=== PATIENT | male | born 1965 | race Caucasian/White ===

== ENCOUNTER 2018-04-14 21:06 | Emergency (ER) | payer SELFPAY ==
[2018-04-14 21:25] VITALS: BP 161/88
--- NOTE | 2018-04-14 21:26 | EDM.PDOC ---
ED HPI GENERAL MEDICAL PROBLEM - General Chief Complaint: Genitourinary Problem Stated Complaint: kidney stone Time Seen by Provider: 04/14/18 21:26 Source of Information: Reports: Patient History Limitations: Reports: No Limitations - History of Present Illness INITIAL COMMENTS - FREE TEXT/NARRATIVE: 52-year-old male presents the ED for evaluation of dizziness lightheadedness and shortness of breath that occurred after shoveling snow this afternoon. He does admit that he did take a energy drink prior to going out to shovel snow. He wanted to make sure that he wasn't having a heart attack since his symptoms seem to persist he just doesn't feel right. He's been struggling also with a left renal stone on the left ureter. He hasn't been able to pursue urology services because he doesn't have insurance at this point time. Patient has had multiple renal calculi. Is been present for about 4 weeks. Therefore he wanted to make sure he did not have a urinary tract infection as well. States he kind of feels like he has a low-grade fever and feels weak. Eyes any true chest pain. Denies cough or sputum production. Clinically he feels like he has a low- grade fever. In fact nurses report temperature 37.6. He denies cough or sputum production. Onset: Today Onset Date: 04/14/18 Onset Time: 15:00 Duration: Hour(s): Location: Reports: Generalized (Just generally doesn't feel good. Feels mildly short of breath slightly dizzy slightly weak) Quality: Reports: Other Severity: Mild (Weakness dizziness and dyspnea.) Improves with: Reports: None Worsens with: Reports: None Context: Reports: Other. Denies: Activity, Exercise, Lifting, Sick Contact Associated Symptoms: Reports: Fever/Chills, Loss of Appetite, Malaise, Shortness of Breath. 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 below) (None.) Left Flank Pain Score (Numeric/FACES): 2 - Related Data Allergies Allergy/AdvReac Type Severity Reaction Status Date / Time milk Allergy Nausea and Verified 11/25/15 10:20 Vomiting Home Meds: Home Meds Simvastatin [Zocor] 20 mg PO DAILY 11/25/15 [History] Nitrofurantoin Monohyd/M-Cryst [Macrobid 100 mg Capsule] 100 mg PO BID #16 capsule 04/14/18 [Rx] oxyCODONE HCl/Acetaminophen [Percocet 5-325 mg Tablet] 1 - 2 each PO Q4H PRN # 10 tablet 04/14/18 [Rx] Past Medical History Cardiovascular History: Reports: High Cholesterol Genitourinary History: Reports: Renal Calculus (On greater than 6 occasions), Other (See Below) Other Genitourinary History: lithotripsy - Past Surgical History Male Surgical History: Reports: Lithotripsy (ESWL) Social & Family History - Caffeine Use Caffeine Use: Reports: Coffee - Living Situation & Occupation Living situation: Reports: , with Spouse Occupation: Employed ED ROS GENERAL - Review of Systems Review Of Systems: See Below Constitutional: Reports: Fever, Malaise, Weakness, Fatigue, Decreased Appetite. Denies: Chills, Weight Loss HEENT: Reports: No Symptoms Respiratory: Reports: Shortness of Breath. Denies: Wheezing, Pleuritic Chest Pain, Cough, Sputum, Hemoptysis, Other Cardiovascular: Reports: Blood Pressure Problem, Lightheadedness. Denies: Chest Pain, Claudication, Dyspnea on Exertion, Edema, Orthopnea (Mild hypertension), Palpitations Endocrine: Reports: Fatigue GI/Abdominal: Reports: Abdominal Pain (Left lower quadrant abdominal pain due to presumed retained renal stone) : Reports: Frequency Musculoskeletal: Reports: No Symptoms, Back Pain (Pain inferior to his left kidney.) Skin: Reports: No Symptoms Neurological: Reports: No Symptoms Psychiatric: Reports: No Symptoms Hematologic/Lymphatic: Reports: No Symptoms Immunologic: Reports: No Symptoms ED EXAM, GENERAL - Physical Exam Exam: See Below Exam Limited By: No Limitations General Appearance: Alert, WD/WN, Anxious, Mild Distress, Other (Vital signs show that his temperature is 37.6. Pulse 94 and sinus blood pressure slightly elevated 161/88. Sats are 96% on room air) Eye Exam: Bilateral Eye: Normal Inspection Ears: Normal TMs Throat/Mouth: Normal Inspection, Normal Lips, Normal Teeth, Normal Oropharynx Head: Atraumatic, Normocephalic Neck: Normal Inspection, Supple, Non-Tender, Full Range of Motion. No: Carotid Bruit, Lymphadenopathy (L) Respiratory/Chest: No Respiratory Distress, Lungs Clear, Normal Breath Sounds, No Accessory Muscle Use, Chest Non-Tender Cardiovascular: Normal Peripheral Pulses, Regular Rate, Rhythm, No Edema, No Gallop, No Murmur, No Rub Peripheral Pulses: 2+: Posterior Tibial (L), Posterior Tibial (R), Dorsalis Pedis (L), Dorsalis Pedis (R) GI/Abdominal: Normal Bowel Sounds, Soft, Non-Tender, No Organomegaly, No Abnormal Bruit, No Mass, Pelvis Stable (Male) Exam: No Hernia Back Exam: CVA Tenderness (L). No: CVA Tenderness (R) (Mild.), Decreased Range of Motion, Muscle Spasm Extremities: Normal Inspection, Normal Range of Motion, Non-Tender, No Pedal Edema Neurological: Alert, Oriented, CN II-XII Intact, Normal Cognition Psychiatric: Normal Affect, Normal Mood Skin Exam: Warm, Dry, Intact, Normal Color, No Rash EKG INTERPRETATION EKG Date: 04/14/18 Time: 22:00 Rhythm: NSR Rate (Beats/Min): 90 [place]: LAD-Left Wynot Deviation (-34) P-Wave: Present QRS: Other (Q-wave in lead 3 and near Q-wave in aVF. Cannot rule out old inferior wall myocardial infarction) ST-T: Normal QT: Normal EKG Interpretation Comments: Borderline ECG Course - Vital Signs Last Recorded V/S: Last Vital Signs Temp 37.6 C 04/14/18 21:19 Pulse 94 04/14/18 21:19 Resp 16 04/14/18 21:19 BP 161/88 H 04/14/18 21:19 Pulse Ox 95 04/14/18 21:19 - Orders/Labs/Meds Orders: Active Orders 24 hr Category Date Time Status EKG Documentation Completion [RC] STAT Care 04/14/18 21:25 Active Chest 1V Frontal [CR] Stat Exams 04/14/18 21:25 Taken Labs: Laboratory Tests 04/14/18 04/14/18 04/14/18 Range/Units 21:10 21:45 21:45 WBC 8.58 (4.23-9.07) K/mm3 RBC 5.24 (4.63-6.08) M/mm3 Hgb 15.6 (13.7-17.5) gm/L Hct 45.1 (40.1-51.0) % MCV 86.1 (79.0-92.2) fl MCH 29.8 (25.7-32.2) pg MCHC 34.6 (32.2-35.5) g/dl RDW Std Deviation 40.8 (35.1-43.9) fL Plt Count 437 H (163-337) K/mm3 MPV 8.2 L (9.4-12.3) fl Neutrophils % (Manual) 53 (40-60) % Band Neutrophils % 0 (0-10) % Lymphocytes % (Manual) 38 (20-40) % Atypical Lymphs % 0 % Monocytes % (Manual) 3 (2-10) % Eosinophils % (Manual) 6 (0.8-7.0) % Basophils % (Manual) 0 L (0.2-1.2) Platelet Estimate Increased Plt Morphology Comment See note RBC Morph Comment Normal Sodium 141 (136-145) mEq/L Potassium 3.9 (3.5-5.1) mEq/L Chloride 105 (98-107) mEq/L Carbon Dioxide 26 (21-32) mEq/L Anion Gap 13.9 (5-15) BUN 16 (7-18) mg/dL Creatinine 1.1 (0.7-1.3) mg/dL Est Cr Clr Drug Dosing 86.22 mL/min Estimated GFR (MDRD) > 60 (>60) mL/min BUN/Creatinine Ratio 14.5 (14-18) Glucose 119 H (74-106) mg/dL Calcium 9.3 (8.5-10.1) mg/dL Total Bilirubin 0.3 (0.2-1.0) mg/dL AST 20 (15-37) U/L ALT 43 (16-63) U/L Alkaline Phosphatase 62 (46-116) U/L CK-MB (CK-2) 1.3 (0-3.6) ng/ml Troponin I < 0.017 (0.00-0.056) ng/mL C-Reactive Protein 0.2 (<1.0) mg/dL Total Protein 7.1 (6.4-8.2) g/dl Albumin 3.6 (3.4-5.0) g/dl Globulin 3.5 gm/dL Albumin/Globulin Ratio 1.0 (1-2) Urine Color Light yellow (Yellow) Urine Appearance Clear (Clear) Urine pH 7.0 (5.0-8.0) Ur Specific [place] 1.015 (1.005-1.030) Urine Protein Negative (Negative) Urine Glucose (UA) Negative (Negative) Urine Ketones Negative (Negative) Urine Occult Blood Trace-intact H (Negative) Urine Nitrite Negative (Negative) Urine Bilirubin Negative (Negative) Urine Urobilinogen 0.2 (0.2-1.0) Ur Leukocyte Esterase Negative (Negative) Urine RBC 0-5 (0-5) /hpf Urine WBC 0-5 (0-5) /hpf Ur Epithelial Cells 0-5 (0-5) /hpf Amorphous Sediment Few H (NOT SEEN) /hpf Urine Bacteria Few (FEW) /hpf Urine Mucus Not seen (FEW) /hpf Meds: Medications Discontinued Medications Generic Name Dose Route Start Last Admin Trade Name Freq PRN Reason Stop Dose Admin Dextrose/Sodium Chloride 1,000 mls @ 999 mls/hr 04/14/18 21:30 04/14/18 21:51 Dextrose 5%-Normal Saline IV 999 mls/hr ASDIRECTED KETTY Administration Nitrofurantoin Macrocrystals 100 mg 04/14/18 22:39 04/14/18 22:58 Macrobid PO 04/14/18 22:40 100 mg ONETIME ONE Administration - Radiology Interpretation Free Text/Narrative:: 52-year-old male presents the ED for evaluation of shortness of breath some dizziness and just generally not feeling well for about 2-3 hours after shoveling snow earlier this afternoon. States he just wanted to make sure he wasn't having a heart attack. Patient is having a lot of pain due to a left- sided kidney stone which has been present for several weeks. At present he doesn 't have a job with any insurance and therefore has not sought out urology services. Concern he may have a urinary tract infection as well. Patient admits she did have an energy drink before he went out to shovel snow. Case after shoveling snow he felt quite dizzy lightheaded and short of breath. Actually then 1 in the hopes to rest for a couple of hours and still feeling not quite right. Examination reveals normal vital signs he is mildly anxious. Routine labs and urinalysis will be obtained as well as ECG and a chest x-ray to rule out any cardiac abnormalities. Examination is otherwise normal. Patient did not wish to pursue CT exam of the abdomen to establish stone size due to cost at this time - Re-Assessments/Exams Free Text/Narrative Re-Assessment/Exam: 04/14/18 22:32 Labs reveal a normal white count at 8.58. Differential is 53% neutrophils and no bands reported. Hemoglobin is 15.6 with hematocrit of 45.1. Platelet count is 437,000 slightly elevated. Sodium 141 with a potassium of 3.9. Chloride 105 with a bicarbonate 26. And a gap is 13.9 with a BUN of 16. Creatinine is 1.1. GFR remains greater than 60. Glucose is 119. Calcium is 9.3 bilirubin is 0.3 with liver function otherwise normal. Troponin I is less than 0.017 and CK-MB fraction is 1.3. Urinalysis shows slightly yellow urine .Trace of occult blood . No signs of infection. Plan patient will be placed on Macrobid 100 mg twice a day for the next 10 days to prevent urinary tract infection as the stone is been wedged in the left lower ureter clinically for the last 4 weeks. Reassured that his heart is okay. Given 10 tablets of Percocet 5/3/25 milligrams to be used when necessary for renal colic pain. May be coming down with a viral upper respiratory tract infection. Departure - Departure Time of Disposition: 22:39 Disposition: Home, Self-Care 01 Condition: Fair Clinical Impression: Renal colic on left side Fever Qualifiers: Fever type: unspecified Qualified Code(s): R50.9 - Fever, unspecified - Discharge Information *PRESCRIPTION DRUG MONITORING PROGRAM REVIEWED*: Not Applicable *COPY OF PRESCRIPTION DRUG MONITORING REPORT IN PATIENT JUDY: Not Applicable Prescriptions: Nitrofurantoin Monohyd/M-Cryst [Macrobid 100 mg Capsule] 100 mg PO BID #16 capsule oxyCODONE HCl/Acetaminophen [Percocet 5-325 mg Tablet] 1 - 2 each PO Q4H PRN # 10 tablet PRN Reason: pain relief. Instructions: Renal Colic, [id number] Referrals: PCP,None [Primary Care Provider] - Forms: ED Department Discharge Additional Instructions: Evaluation the emergency room today in regards to onset of dizziness shortness of breath and just generally not feeling well while out shoveling snow today. No significant chest pain or pressure that persisted. ECG done in the ED suggested the possibility of a problem in the inferior bottom of the heart in the past but nothing acute. You're currently suffering with a kidney stone that is stuck in the left lower ureter. Low-grade fever clinically. Therefore chest x -ray was done and proved to be within normal limits with no signs of pneumonia. Lab tests revealed a normal white count with no elevation of the type of cells that fight off infection. Urinalysis showed a trace of red blood cells. Heart tests proved to be completely normal with no evidence of any heart related illness and certainly no signs of heart attack. You are given Percocet 5/3/25 milligrams tabs 10 to be taken as needed for renal colic on the left side. Macrobid 100 mg twice daily for the next 8 days to prevent kidney infection from occurring due to stone. Follow-up if any further problems occur. I suspect you may be coming down with a viral type illness to Gibbs low-grade fever at this time. - My Orders Last 24 Hours: My Active Orders 04/14/18 21:25 EKG Documentation Completion [RC] STAT Chest 1V Frontal [CR] Stat - Assessment/Plan Last 24 Hours: My Active Orders 04/14/18 21:25 EKG Documentation Completion [RC] STAT Chest 1V Frontal [CR] Stat
[2018-04-14] MEDS ORDERED: Dextrose 5%-0.9% NaCl 1,000 ML IV SCH (21:30)
[2018-04-14] MEDS ORDERED: Nitrofurantoin Monohydrate/Macrocrystalline 100 MG Cap PO ONE (22:39)
--- NOTE | 2018-04-15 07:17 | CR ---
Chest: Portable view of the chest was obtained. Comparison: Prior chest x-ray of 04/28/14. Heart size and mediastinum are normal. Slight atelectasis is seen within the lateral left costophrenic angle. Lungs are clear with no acute parenchymal change. Bony structures are unremarkable. Impression: 1. Nothing acute is seen in frontal chest x-ray. Diagnostic code #1
== END 2018-04-14 23:00 | disposition home or self-care (01) ==
LOC: JD.ED 21:06
DX: N20.0 Calculus of kidney (principal); R50.9 Fever, unspecified; R42 Dizziness and giddiness; E78.00 Pure hypercholesterolemia, unspecified; Z79.899 Other long term (current) drug therapy; Z91.011 Allergy to milk products
CPT/HCPCS: 36415; 71045; 80053; 81001; 82553; 84484; 85007; 85027; 86140; 93005; 96360; 99284; A9270; J7042; 93010; 99283

== ENCOUNTER 2018-06-23 20:38 | Emergency (ER) | payer MEDICAID, OTHER ==
[2018-06-23 20:48] VITALS: BP 140/93
[2018-06-23] MEDS ORDERED: Lidocaine 1% 10 ML MDV INJECT ONE (21:14)
[2018-06-23] MEDS ORDERED: Diphtheria,Pertussis(Acell),Tetanus Vaccine 0.5 ML Syringe IM ONE (21:14)
[2018-06-23] MEDS ORDERED: Acetaminophen/HYDROcodone 325-5 MG Tab PO ONE (21:51)
--- NOTE | 2018-06-23 22:06 | EDM.PDOC ---
ED HPI GENERAL MEDICAL PROBLEM - General Chief Complaint: Laceration Stated Complaint: CUT RIGHT RING FINGER Time Seen by Provider: 06/23/18 20:46 Source of Information: Reports: Patient History Limitations: Reports: No Limitations - History of Present Illness INITIAL COMMENTS - FREE TEXT/NARRATIVE: 53 y/o male presents to ER with cc right ring finger laceration. He states while working on some equipment his hand slipped and a metal piece cut his finger. He denies any numbness or tingling. He is right handed. He is uncertain of his last tetanus. Onset: Today, Sudden Onset Date: 06/23/18 Onset Time: 02:00 Duration: Resolved Prior to Arrival Location: Reports: Upper Extremity, Right Quality: Reports: Ache Severity: Mild Improves with: Reports: None Worsens with: Reports: None Associated Symptoms: Reports: No Other Symptoms - Related Data Allergies Allergy/AdvReac Type Severity Reaction Status Date / Time milk Allergy Nausea and Verified 11/25/15 10:20 Vomiting Home Meds: Home Meds Simvastatin [Zocor] 20 mg PO DAILY 11/25/15 [History] Nitrofurantoin Monohyd/M-Cryst [Macrobid 100 mg Capsule] 100 mg PO BID #16 capsule 04/14/18 [Rx] oxyCODONE HCl/Acetaminophen [Percocet 5-325 mg Tablet] 1 - 2 each PO Q4H PRN # 10 tablet 04/14/18 [Rx] Past Medical History Cardiovascular History: Reports: High Cholesterol Genitourinary History: Reports: Renal Calculus, Other (See Below) Other Genitourinary History: lithotripsy - Past Surgical History Male Surgical History: Reports: Lithotripsy (ESWL) Social & Family History - Family History Family Medical History: Noncontributory - Caffeine Use Caffeine Use: Reports: Coffee - Living Situation & Occupation Living situation: Reports: , with Spouse Occupation: Employed ED ROS GENERAL - Review of Systems Review Of Systems: See Below Constitutional: Reports: No Symptoms HEENT: Reports: No Symptoms Respiratory: Reports: No Symptoms Cardiovascular: Reports: No Symptoms Endocrine: Reports: No Symptoms GI/Abdominal: Reports: No Symptoms : Reports: No Symptoms Musculoskeletal: Reports: Other (right index finger pain due to laceration) Skin: Reports: Wound (right index finger laceration) Neurological: Reports: No Symptoms Psychiatric: Reports: No Symptoms Hematologic/Lymphatic: Reports: No Symptoms Immunologic: Reports: No Symptoms ED EXAM, SKIN/RASH Exam: See Below General Appearance: Alert, WD/WN, No Apparent Distress Peripheral Pulses: 4+: Radial (L), Radial (R) Neurological: Alert, Oriented Skin: Warm, Dry, Normal Color, No Rash, Other (right shaffer index finger laceration 2.0 cm, neurovascularly intact.) Location, Skin: Upper Extremity, Right Associated features: Tenderness. No: Warmth, Swelling, Inflammation Lymphatic: No Adenopathy ED SKIN PROCEDURES - Laceration/Wound Repair Right Lower Mid-Anterior Proximal Digit - 4th (Ring) Lac/Wound length In cm: 2.5 Appearance: Subcutaneous Distal NVT: Neuro & Vascular Intact Anesthetic Type: Local Local Anesthesia - Lidocaine (Xylocaine): 1% Plain Skin Prep: Chlorhexidine (Hibiciens) Closed with: Sutures Suture Size: other (5.0) # of Sutures: 3 Suture Type: Prolene Sterile Dressing Applied: Nurse Tetanus Status Addressed: Yes Complications: No Course - Vital Signs Last Recorded V/S: Last Vital Signs Temp 97.6 F 06/23/18 20:46 Pulse 78 06/23/18 20:46 Resp 16 06/23/18 20:46 BP 140/93 H 06/23/18 20:46 Pulse Ox 100 06/23/18 20:46 - Orders/Labs/Meds Orders: Active Orders 24 hr Category Date Time Status Vaccines to be Administered [RC] PER UNIT ROUTINE Care 06/23/18 21:14 Active Meds: Medications Discontinued Medications Generic Name Dose Route Start Last Admin Trade Name Tashi PRN Reason Stop Dose Admin Hydrocodone Bitart/Acetaminophen 1 tab 06/23/18 21:51 [place] 325-5 Mg PO 06/23/18 21:52 ONETIME ONE Diphtheria/Tetanus/Acell Pertussis 0.5 ml 06/23/18 21:14 06/23/18 21:37 Adacel IM 06/23/18 21:15 0.5 ml .ONCE ONE Administration - Re-Assessments/Exams Free Text/Narrative Re-Assessment/Exam: 06/23/18 22:06 53 y/o male presented to ER with cc right index finger laceration. He received laceration repair and Tetanus and his condition improved. I will discharge home with wound care instructions. Instructed to follow up with his PCP in 7-10 days to have sutures removed. Instructed to return to the ER for any new or acute worsening symptoms. He verbalized understanding and is stable at time of discharge. Departure - Departure Time of Disposition: 22:08 Disposition: Home, Self-Care 01 Condition: Good Clinical Impression: Finger laceration Qualifiers: Finger: ring finger Damage to nail status: without damage Foreign body presence : without foreign body Laterality: right - Discharge Information Instructions: Laceration Care, Adult, [id number] Referrals: PCP,None [Primary Care Provider] - Additional Instructions: You have been diagnosis with finger laceration. Follow up with your PCP in 7-10 days to have sutures removed. Return to the ER for any new or acute worsening symptoms. - My Orders Last 24 Hours: My Active Orders 06/23/18 21:14 Vaccines to be Administered [RC] PER UNIT ROUTINE - Assessment/Plan Last 24 Hours: My Active Orders 06/23/18 21:14 Vaccines to be Administered [RC] PER UNIT ROUTINE
== END 2018-06-23 22:15 | disposition home or self-care (01) ==
LOC: JD.ED 20:38
DX: S61.210A Laceration without foreign body of right index finger without damage to nail, initial encounter (principal); Z23 Encounter for immunization; Z79.899 Other long term (current) drug therapy; W22.8XXA Striking against or struck by other objects, initial encounter; Y99.0 Civilian activity done for income or pay
CPT/HCPCS: 12001; 90471; 90700; 99282; A9270; 99283

== ENCOUNTER 2019-03-22 13:46 | Emergency (ER) | payer MEDICAID ==
[2019-03-22 13:57] VITALS: BP 157/94
[2019-03-22] MEDS ORDERED: Acetaminophen 325 MG Tab PO ONE (14:19)
--- NOTE | 2019-03-22 14:19 | EDM.PDOC ---
ED HPI GENERAL MEDICAL PROBLEM - General Chief Complaint: Neuro Symptoms/Deficits Stated Complaint: SLURRED SPEECH AND FORGETFUL Time Seen by Provider: 03/22/19 14:18 Source of Information: Reports: Patient, Family History Limitations: Reports: No Limitations - History of Present Illness INITIAL COMMENTS - FREE TEXT/NARRATIVE: 53-year-old male presents to the ED in the accompaniement of his . He presents stating that about 2 hours ago he was having trouble speaking with slurred speech and dysarthric speech. He had no other neurological signs or symptoms. He reports she's been working very long hours and not getting enough sleep or fluids perhaps. He feels dehydrated. Is also got problems with a 1 cm left-sided kidney stone that is causing intermittent pain and nausea. He's not sure that the urine has any odor to it. He is scheduled for lithotripsy April 26. He has had multiple kidney stones in the past. Is a full suffering from very bad dental disease with his molar teeth on the right side both upper and lowers broken off at the gingiva margin. These 2 could be causing fever. It is definitely febrile on exam. He has no cough or sputum production. Onset: Today, Sudden Onset Date: 03/22/19 Onset Time: 12:00 Duration: Hour(s): (States he thought he had slurred speech for a couple of hours. Each in the ED is back to normal.), Resolved Prior to Arrival Location: Reports: Other (Arthritic/slurred speech. Feeling fatigued and weak and lightheaded.) Quality: Reports: Other (Is generally weak and lightheaded and dizzy.) Severity: Moderate Improves with: Reports: Other (Is better at this time.) Worsens with: Reports: Other Context: Denies: Activity, Exercise (Nothing seemed to bring it on.), Lifting, Sick Contact, Trauma, Other Associated Symptoms: Reports: Fever/Chills, Loss of Appetite, Malaise, Nausea/ Vomiting (Intermittent nausea with the), Other (Left renal colic with a known 1 cm stone in the proximal left ureter.). Denies: Confusion, Cough, cough w sputum, Diaphoresis, Headaches, Rash, Seizure ( left kidney stone movement.), Shortness of Breath, Syncope Treatments MANAGER FLOAT: Reports: Other (see below) (None.) - Related Data Allergies Allergy/AdvReac Type Severity Reaction Status Date / Time milk Allergy Nausea and Verified 03/22/19 13:57 Vomiting Penicillins Allergy Rash Verified 03/22/19 13:57 Home Meds: Home Meds Simvastatin [Zocor] 20 mg PO DAILY 11/25/15 [History] Doxycycline [Vibramycin] 100 mg PO BID #20 cap 03/22/19 [Rx] Levothyroxine 25 mcg PO DAILY 03/22/19 [History] Ondansetron [Zofran] 4 mg BUCCAL Q6H PRN #5 tab 03/22/19 [Rx] oxyCODONE HCl/Acetaminophen [Percocet 5-325 mg Tablet] 1 - 2 each PO Q4H PRN # 20 tablet 03/22/19 [Rx] Past Medical History Cardiovascular History: Reports: High Cholesterol Genitourinary History: Reports: Renal Calculus, Other (See Below) Other Genitourinary History: lithotripsy - Past Surgical History Male Surgical History: Reports: Lithotripsy (ESWL) Social & Family History - Family History Family Medical History: Noncontributory - Tobacco Use Smoking Status *Q: Current Some Day Smoker Years of Tobacco use: 30 Packs/Tins Daily: 0.1 - Caffeine Use Caffeine Use: Reports: Coffee, Energy Drinks, Soda - Recreational Drug Use Recreational Drug Use: No - Living Situation & Occupation Living situation: Reports: , with Spouse Occupation: Employed ED ROS GENERAL - Review of Systems Review Of Systems: See Below Constitutional: Reports: Fever, Chills, Malaise, Weakness, Fatigue, Decreased Appetite HEENT: Reports: Other (Until infection right upper) Respiratory: Reports: Cough. Denies: Shortness of Breath ( second molar right lower second molar which is broken off even with the gingiva margin.), Wheezing , Pleuritic Chest Pain Cardiovascular: Reports: Blood Pressure Problem, Lightheadedness. Denies: Chest Pain (Occasional cough. No worse than normal.), Claudication, Dyspnea on Exertion, Orthopnea Endocrine: Reports: Fatigue GI/Abdominal: Reports: Abdominal Pain (Left upper quadrant associated with renal colic), Decreased Appetite : Reports: Flank Pain (. left renal colic due to a 1 cm stone in the proximal left ureter. ), Frequency, Other (Stone causes intermittent pain.) Musculoskeletal: Reports: Other (Feels weak all over.) Skin: Reports: No Symptoms Neurological: Reports: Dizziness, Change in Speech, Other (Little dizzy earlier today. Third speech with trouble saying carcinogen about 2 hours ago.) Psychiatric: Reports: No Symptoms (Speeches. Will back to normal when seen in the ED.) Hematologic/Lymphatic: Reports: No Symptoms Immunologic: Reports: No Symptoms ED EXAM, NEURO - Physical Exam Exam: See Below Exam Limited By: No Limitations General Appearance: Alert, WD/WN, Anxious, Other (Mildly anxious. It's temperatures reportedly 36.6 but he is definitely warm to palpation i.e. 102. Heart rate was 108 at the bedside. O2 sats are 99% on room air. Blood pressure is mildly elevated at 157/94.) Eye Exam: Bilateral Eye: Normal Inspection, PERRL Ears: Normal TMs Throat/Mouth: Other (Patient does have dental infection I suspect right upper can [place] the gingiva around the tooth is broken off even with the gingiva margin is markedly swollen and erythematous. There is no obvious dental abscess that would benefit from drainage. He has a right lower molar that is also broken off his judgment gingiva margin without any swelling around the tooth. For the mouth is normal. Uvula is in the midline. Tongue does appear mildly dry and coated.) Head Exam: Atraumatic, Normocephalic Neck: Normal Inspection, Supple, Non-Tender, Full Range of Motion, Lymphadenopathy (L). No: Lymphadenopathy (R) (Right-sided submandibular adenopathy) Respiratory/Chest: No Respiratory Distress, Lungs Clear, Normal Breath Sounds, No Accessory Muscle Use Cardiovascular: Normal Peripheral Pulses (Jefry tachycardia at the bedside.), No Edema, No Gallop, No JVD, No Murmur, No Rub, Tachycardia GI/Abdominal: Normal Bowel Sounds, Soft, Non-Tender, No Organomegaly, No Mass, Pelvis Stable Neurological: Alert, Normal Mood/Affect, Normal Dorsiflexion, CN II-XII Intact, Normal Plantar Flexion, Normal Gait, Normal Reflexes, No Motor/Sensory Deficits , Oriented x 3, Other (Rapid alternating movements and finger to nose assessment are normal as well.) Extremities: Normal Inspection, Normal Range of Motion, Non-Tender Psychiatric: Normal Affect, Normal Mood Skin Exam: Warm, Dry, Intact, Normal Color, No Rash Course - Vital Signs Last Recorded V/S: Last Vital Signs Temp 37.2 C 03/22/19 16:20 Pulse 95 03/22/19 16:20 Resp 16 03/22/19 16:20 BP 157/94 H 03/22/19 13:54 Pulse Ox 99 03/22/19 16:20 - Orders/Labs/Meds Orders: Active Orders 24 hr Category Date Time Status CULTURE BLOOD [BC] Stat Lab 03/22/19 14:32 Received CULTURE BLOOD [BC] Stat Lab 03/22/19 14:44 Received Blood Culture x2 Reflex Set [OM.PC] Stat Oth 03/22/19 14:21 Ordered Labs: Laboratory Tests 03/22/19 03/22/19 03/22/19 Range/Units 14:32 14:32 15:18 WBC 8.51 (4.23-9.07) K/mm3 RBC 5.29 (4.63-6.08) M/mm3 Hgb 15.8 (13.7-17.5) gm/dl Hct 46.8 (40.1-51.0) % MCV 88.5 (79.0-92.2) fl MCH 29.9 (25.7-32.2) pg MCHC 33.8 (32.2-35.5) g/dl RDW Std Deviation 41.9 (35.1-43.9) fL Plt Count 455 H (163-337) K/mm3 MPV 8.2 L (9.4-12.3) fl Neutrophils % (Manual) 59 (40-60) % Band Neutrophils % 0 (0-10) % Lymphocytes % (Manual) 30 (20-40) % Atypical Lymphs % 0 % Monocytes % (Manual) 3 (2-10) % Eosinophils % (Manual) 7 (0.8-7.0) % Basophils % (Manual) 1 (0.2-1.2) Platelet Estimate Increased Plt Morphology Comment Normal RBC Morph Comment Normal Sodium 140 (136-145) mEq/L Potassium 3.8 (3.5-5.1) mEq/L Chloride 103 (98-107) mEq/L Carbon Dioxide 28 (21-32) mEq/L Anion Gap 12.8 (5-15) BUN 13 (7-18) mg/dL Creatinine 1.1 (0.7-1.3) mg/dL Est Cr Clr Drug Dosing 85.24 mL/min Estimated GFR (MDRD) > 60 (>60) mL/min BUN/Creatinine Ratio 11.8 L (14-18) Glucose 100 (74-106) mg/dL Calcium 9.0 (8.5-10.1) mg/dL Magnesium 2.2 (1.8-2.4) mg/dl Total Bilirubin 0.2 (0.2-1.0) mg/dL AST 15 (15-37) U/L ALT 43 (16-63) U/L Alkaline Phosphatase 67 (46-116) U/L C-Reactive Protein < 0.2 (<1.0) mg/dL Total Protein 7.5 (6.4-8.2) g/dl Albumin 4.0 (3.4-5.0) g/dl Globulin 3.5 gm/dL Albumin/Globulin Ratio 1.1 (1-2) Urine Color Yellow (Yellow) Urine Appearance Cloudy H (Clear) Urine pH 7.0 (5.0-8.0) Ur Specific [place] 1.025 (1.005-1.030) Urine Protein 1+ H (Negative) Urine Glucose (UA) Negative (Negative) Urine Ketones Negative (Negative) Urine Occult Blood Negative (Negative) Urine Nitrite Negative (Negative) Urine Bilirubin Negative (Negative) Urine Urobilinogen 0.2 (0.2-1.0) Ur Leukocyte Esterase Negative (Negative) Urine RBC 0-5 (0-5) /hpf Urine WBC 0-5 (0-5) /hpf Ur Squamous Epith Cells 0-5 (0-5) /hpf Amorphous Sediment Many H (NOT SEEN) /hpf Urine Bacteria Few (FEW) /hpf Urine Mucus Moderate H (FEW) /hpf Meds: Medications Discontinued Medications Generic Name Dose Route Start Last Admin Trade Name Freq PRN Reason Stop Dose Admin Acetaminophen 975 mg 03/22/19 14:19 03/22/19 14:34 Tylenol PO 03/22/19 14:20 975 mg ONETIME ONE Administration Dextrose/Sodium Chloride 1,000 mls @ 999 mls/hr 03/22/19 14:30 03/22/19 14:34 Dextrose 5%-Normal Saline IV 999 mls/hr ASDIRECTED KETTY Administration - Radiology Interpretation Free Text/Narrative:: 53-year-old male presents to the ED with concerns about development of slurred speech and dysarthria that seemed to last for maybe an hour or so. Speech is back to normal in the ED. He reports that he's not been getting adequate sleep or food or fluids for the last several days due to working 18 hours a day. I assessment he is also febrile. He has evidence of a dental infection on the right upper molar which is broken off and even with the gingiva margin and marked gingiva swelling. Patient has a history of recurrent kidney stones. Currently has a 1 cm stone in his left proximal ureter that gives him intermittent pain and nausea. This too could be a nidus for source for infection. Not clinically have any cough or sputum production. Workup will be carried out. IV will be D5 normal saline at open. CT scan of the brain will be done. Blood cultures 2. - Re-Assessments/Exams Free Text/Narrative Re-Assessment/Exam: 03/22/19 15:02 CT of the brain is normal with no intracranial bleeding or mass effect. There is moderate mucosal thickening seen within the ethmoid sinuses with mild mucosal thickening noted within the sphenoid and frontal sinuses bilaterally. No air-fluid levels are seen. No acute mastoid sinusitis identified. 03/22/19 15:17 Hematology reveals a normal white count at 8.51. Differential is 59% neutrophils and no band cells. Hemoglobin is 15.8 with hematocrit of 46.8. Platelet count is elevated at 455,000. The cause for this is unclear. Sodium 140 with potassium of 3.8. Chloride is low through the bicarbonate 28. And a gap is 12.8 with a BUN of 13. Creatinine is 1.1. GFR is greater than 60. Glucose is 100. Calcium is 9.0. Magnesium is 2.2. Liver function is normal. C- reactive protein less than 0.2. Total protein is 7.5 with an albumin fraction of 4.0. She is feeling better with the fluids that he received and fever reduction. He feels like he could void and therefore we will wait for sample. 03/22/19 15:56 Urinalysis is cloudy with 1+ proteinuria but negative leukocyte esterase and the slide reveals no active infection lady to 1 cm stone in the proximal left ureter.. He will be be discharged home. He will continue Motrin 600 mg every 6 hours needed for fever relief. He will rehydrate with Gatorade/ Powerade. To use Zofran 4 mg under the tongue every 4-6 hours necessary for nausea relief. Percocet tabs 5/3/25 milligrams one or 2 every 4 hours as needed for relief of renal colic pain. Likely Doxil cycle 100 mg twice daily for the next 10 days for dental infection. Departure - Departure Time of Disposition: 15:57 Disposition: Home, Self-Care 01 Condition: Fair Clinical Impression: Dehydration, Acute febrile illness, Infected dental caries, Renal lithiasis, Ureteric colic - Discharge Information *PRESCRIPTION DRUG MONITORING PROGRAM REVIEWED*: Not Applicable *COPY OF PRESCRIPTION DRUG MONITORING REPORT IN PATIENT JUDY: Not Applicable Prescriptions: Doxycycline [Vibramycin] 100 mg PO BID #20 cap Ondansetron [Zofran] 4 mg BUCCAL Q6H PRN #5 tab PRN Reason: nausea or vomiting oxyCODONE HCl/Acetaminophen [Percocet 5-325 mg Tablet] 1 - 2 each PO Q4H PRN # 20 tablet PRN Reason: pain relief. Instructions: Renal Colic, [id number], Kidney Stones, [id number], Dehydration, Adult, [id number] Referrals: PCP,None [Primary Care Provider] - Forms: ED Department Discharge Additional Instructions: Hydration the emergency room today in regards to development of slurred speech associated with fatigue and feeling generally weak. Identified fever in the emergency department. As you are already appreciate you have a dental infection particularly of the right upper second molar tooth where it is broken off even with the gingival margin with surrounding swelling due to infection. He'll having a good deal of pain secondary to 1 cm left-sided kidney stone. Tests revealed a white blood cell count within the normal range. ET of your brain was done due to the neurological symptoms of dysarthria and slurred speech which was only transiently. I suspect this was secondary to dehydration and fever. You were treated with a liter of intravenous fluids in the ED seemed to make you feel quite a bit better. Urine testing also proved to be negative for any signs of infection. Therefore source of infection appears to be dental abscess. A prescription has been written for Percocet tablets 5/325 mg usually 2 tablets every 4-6 hours needed for pain relief. Zofran 4 mg under the tongue every 4-6 hours necessary for nausea relief particularly if the kidney stone start to move and cause increased pain and nausea. Anti biotic is to be doxycycline 100 mg twice daily for the next 10 days to clear up dental infection and prevent any urinary tract infection from the kidney stone as well. Also CT did suggest that you have mild sinus infection in your ethmoids and sphenoid sinuses and the ducts likely will clear this up as well. You may need fever management with Motrin 600 mg every 6 hours for the next day or so until the infection comes under control. Sepsis Event Note - Evaluation Sepsis Screening Result: No Definite Risk - Focused Exam Vital Signs: Vital Signs Temp Pulse Resp BP Pulse Ox 03/22/19 16:20 37.2 C 95 16 99 03/22/19 13:54 36.6 C 108 H 16 157/94 H 99 Date Exam was Performed: 03/22/19 Time Exam was Performed: 18:14 - My Orders Last 24 Hours: My Active Orders 03/22/19 14:21 Blood Culture x2 Reflex Set [OM.PC] Stat 03/22/19 14:32 CULTURE BLOOD [BC] Stat 03/22/19 14:44 CULTURE BLOOD [BC] Stat - Assessment/Plan Last 24 Hours: My Active Orders 03/22/19 14:21 Blood Culture x2 Reflex Set [OM.PC] Stat 03/22/19 14:32 CULTURE BLOOD [BC] Stat 03/22/19 14:44 CULTURE BLOOD [BC] Stat
[2019-03-22] MEDS ORDERED: Dextrose 5%-0.9% NaCl 1,000 ML IV SCH (14:30)
--- NOTE | 2019-03-22 15:11 | CT ---
Head CT Technique: Multiple axial sections through the brain were obtained. Intravenous contrast was not utilized. Comparison: No prior intracranial imaging is available. Findings: Ventricles along with basal cisterns and sulci over the convexities are within normal limits for the patient's age. No abnormal parenchymal densities are seen. No evidence of intracranial hemorrhage. No midline shift or mass effect is seen. Bone window settings were reviewed which shows no acute calvarial abnormality. Moderate mucosal thickening is seen within the ethmoid sinuses with mild mucosal thickening noted within sphenoid and frontal sinuses. No air-fluid levels are seen. No acute mastoid sinus findings are seen. No acute calvarial abnormality is appreciated. Impression: 1. Sinus findings as noted above most likely chronic. 2. No acute intracranial abnormality is appreciated. Diagnostic code #2 Study was dictated in [place] Standard Time
[2019-03-22 16:46] VITALS: PULSE 95
== END 2019-03-22 16:25 | disposition home or self-care (01) ==
LOC: JD.ED 13:46
DX: N20.1 Calculus of ureter (principal); E86.0 Dehydration; K02.9 Dental caries, unspecified; E78.00 Pure hypercholesterolemia, unspecified; F17.210 Nicotine dependence, cigarettes, uncomplicated; Z88.0 Allergy status to penicillin; Z91.011 Allergy to milk products; Z87.442 Personal history of urinary calculi; Z79.899 Other long term (current) drug therapy
CPT/HCPCS: 36415; 70450; 80053; 81001; 83735; 85007; 85027; 86140; 87040; 96360; 99285; A9270; J7042; 99284

== ENCOUNTER 2019-08-20 21:18 | Emergency (ER) | payer MEDICAID, OTHER ==
[2019-08-20 21:28] VITALS: BP 152/98; PULSE 99
[2019-08-20] MEDS ORDERED: Acetaminophen/HYDROcodone 325-10 MG Tab PO ONE (21:45)
--- NOTE | 2019-08-20 21:57 | EDM.PDOC ---
ED HPI GENERAL MEDICAL PROBLEM - General Chief Complaint: ENT Problem Stated Complaint: tooth pain Time Seen by Provider: 08/20/19 21:28 Source of Information: Reports: Patient, RN Notes Reviewed History Limitations: Reports: No Limitations - History of Present Illness INITIAL COMMENTS - FREE TEXT/NARRATIVE: Patient is a 54-year-old male who presents to the ED for the evaluation of his left lower jaw pain. Patient notes that he has been appreciating pain and swelling in his left lower jaw for the last day and a half. He states pain started yesterday, he noticed the swelling starting today. Patient states that he does have leftover clindamycin at home, and has been taking 3 tablets a day for the last 2 days. Patient has been using ibuprofen for pain management but this does not seem to be doing much, he does feel generally lethargic, but has not had any fevers or chills, difficulty swallowing, cough/shortness of breath or chest pain, nausea/vomiting/diarrhea. Left Lower Tooth/Teeth Pain Score (Numeric/FACES): 2 - Related Data Allergies Allergy/AdvReac Type Severity Reaction Status Date / Time milk Allergy Nausea and Verified 08/20/19 21:26 Vomiting Penicillins Allergy Rash Verified 08/20/19 21:26 Home Meds: Home Meds Simvastatin [Zocor] 20 mg PO DAILY 11/25/15 [History] Past Medical History HEENT History: Reports: Other (See Below) (dental issues) Cardiovascular History: Reports: High Cholesterol Genitourinary History: Reports: Renal Calculus, Other (See Below) Other Genitourinary History: lithotripsy Endocrine/Metabolic History: Reports: Hyperthyroidism - Past Surgical History HEENT Surgical History: Reports: Tonsillectomy Male Surgical History: Reports: Lithotripsy (ESWL) Social & Family History - Family History Family Medical History: Noncontributory - Tobacco Use Smoking Status *Q: Former Smoker Used Tobacco, but Quit: Yes Month/Year Tobacco Last Used: 2014 - Caffeine Use Caffeine Use: Reports: Coffee, Energy Drinks, Soda - Recreational Drug Use Recreational Drug Use: No - Living Situation & Occupation Living situation: Reports: , with Spouse Occupation: Employed ED ROS ENT - Review of Systems Review Of Systems: Comprehensive ROS is negative, except as noted in HPI. ED EXAM, ENT - Physical Exam Exam: See Below Exam Limited By: No Limitations General Appearance: Alert, WD/WN, No Apparent Distress Ears: Normal External Exam Nose: Normal Inspection Mouth/Throat: Normal Inspection, Normal Gums, Normal Lips, Normal Oropharynx, Dental Abcess (Left lower jaw, dentition itself is in very poor repair), Dental Pain (Noted to molar on the left lower jaw, there is some erythema at the gumline, this is where the patient's pain is.). No: Tonsillar Swelling, Uvular Deviation Head: Atraumatic, Normocephalic Neck: Normal Inspection Respiratory/Chest: No Respiratory Distress, Lungs Clear, Normal Breath Sounds, No Accessory Muscle Use, Chest Non-Tender Cardiovascular: Normal Peripheral Pulses, Regular Rate, Rhythm, No Murmur Extremities: Normal Inspection, Normal Capillary Refill Neurological: Alert, Oriented, Normal Cognition, No Motor/Sensory Deficits Psychiatric: Normal Affect, Normal Mood Skin: Warm, Dry, Intact, Normal Color, No Rash Course - Vital Signs Last Recorded V/S: Last Vital Signs Temp 98.9 F 08/20/19 21:27 Pulse 99 08/20/19 21:27 Resp 17 08/20/19 21:27 BP 152/98 H 08/20/19 21:27 Pulse Ox 98 08/20/19 21:27 - Orders/Labs/Meds Meds: Medications Discontinued Medications Generic Name Dose Route Start Last Admin Trade Name Tashi PRN Reason Stop Dose Admin Hydrocodone Bitart/Acetaminophen 1 tab 08/20/19 21:45 08/20/19 21:51 Valatie 325-10 Mg PO 08/20/19 21:46 1 tab ONETIME ONE Administration - Re-Assessments/Exams Free Text/Narrative Re-Assessment/Exam: 08/20/19 21:56 Patient presents to the ED for his ongoing dental pain. He will be provided a longer course of clindamycin, and some tablets of pain medication these will be made available through the [facility] as it is nearing 10:00PM as they cannot get to the pharmacy in time and live in [place]. Departure - Departure Time of Disposition: 21:57 Disposition: Home, Self-Care 01 Condition: Good Clinical Impression: Dental abscess, Dental caries - Discharge Information *PRESCRIPTION DRUG MONITORING PROGRAM REVIEWED*: Yes *COPY OF PRESCRIPTION DRUG MONITORING REPORT IN PATIENT JUDY: No Instructions: Dental Abscess, [id number] Referrals: PCP,None [Primary Care Provider] - Additional Instructions: You have been evaluated in the ED for your dental pain. You have been provided with a script for Clindamycin. This medication was made available for the Aiming machine, please take 1 tab 3 times a day for the next 8 days. You will have tablets left over of this antibiotic Aleve provides good pain relief for dental pain. Please take 1-2 tabs twice daily as needed for pain. You were given a prescription for Valatie, please take 1 tab every 4-6 hours as needed for further pain relief. You may use hot pack/ ice packs to the affected area as tolerated in 15-20 minute intervals. You will ultimately need to find a dentist to provide definitive management of your dental pain. The [facility] in [place], [place], , is a clinic that has been known to take people that do not have dental insurance, and may provide payment plans. You might want to check with this provider, regarding your dental pain. Please return to the ED if your symptoms change or worsen. Sepsis Event Note (ED) - Evaluation Sepsis Screening Result: No Definite Risk - Focused Exam Vital Signs: Vital Signs Temp Pulse Resp BP Pulse Ox 08/20/19 21:27 98.9 F 99 17 152/98 H 98
== END 2019-08-20 22:10 | disposition home or self-care (01) ==
LOC: JD.ED 21:18
DX: K04.7 Periapical abscess without sinus (principal); K02.9 Dental caries, unspecified; E78.00 Pure hypercholesterolemia, unspecified; Z87.891 Personal history of nicotine dependence; Z79.899 Other long term (current) drug therapy; Z88.0 Allergy status to penicillin; Z91.011 Allergy to milk products
CPT/HCPCS: 99283; A9270

== ENCOUNTER 2019-11-22 11:52 | Emergency (ER) | payer MEDICAID, OTHER ==
--- NOTE | 2019-11-22 13:00 | EDM.PDOC ---
ED HPI GENERAL MEDICAL PROBLEM - General Chief Complaint: Gastrointestinal Problem Stated Complaint: BLOOD IN STOOL Time Seen by Provider: 11/22/19 11:58 Source of Information: Reports: Patient History Limitations: Reports: No Limitations - History of Present Illness INITIAL COMMENTS - FREE TEXT/NARRATIVE: Patient is a 54-year-old male presenting to the emergency department with complaints of blood in his stool. He states this morning he had a bowel movement upon waking and he noticed red streaks on his stool, as well as some darkness in the water of the toilet. He has had no abdominal pain, nausea, vomiting, or diarrhea. He does have a hemorrhoid which he thought was getting smaller. He also has a history of diverticulitis. Denies any history of previous GI bleed. Patient is not on any blood thinners and does not have a primary care provider. - Related Data Allergies Allergy/AdvReac Type Severity Reaction Status Date / Time milk Allergy Nausea and Verified 11/22/19 12:05 Vomiting Penicillins Allergy Rash Verified 11/22/19 12:05 Home Meds: Home Meds Simvastatin [Zocor] 20 mg PO DAILY 11/25/15 [History] Past Medical History HEENT History: Reports: Other (See Below) (dental issues) Cardiovascular History: Reports: High Cholesterol Genitourinary History: Reports: Renal Calculus, Other (See Below) Other Genitourinary History: lithotripsy Endocrine/Metabolic History: Reports: Hyperthyroidism - Past Surgical History HEENT Surgical History: Reports: Tonsillectomy Male Surgical History: Reports: Lithotripsy (ESWL) Social & Family History - Family History Family Medical History: Noncontributory - Tobacco Use Smoking Status *Q: Never Smoker - Caffeine Use Caffeine Use: Reports: Coffee, Energy Drinks, Soda - Living Situation & Occupation Living situation: Reports: , with Spouse Occupation: Employed ED ROS GENERAL - Review of Systems Review Of Systems: See Below Constitutional: Reports: No Symptoms. Denies: Fever, Chills, Weakness HEENT: Reports: No Symptoms Respiratory: Reports: No Symptoms Cardiovascular: Reports: No Symptoms Endocrine: Reports: No Symptoms GI/Abdominal: Reports: Bloody Stool. Denies: Abdominal Pain, Diarrhea, Nausea, Vomiting : Reports: No Symptoms Musculoskeletal: Reports: No Symptoms Skin: Reports: No Symptoms Neurological: Reports: No Symptoms Psychiatric: Reports: No Symptoms Hematologic/Lymphatic: Reports: No Symptoms Immunologic: Reports: No Symptoms ED EXAM, GI/ABD - Physical Exam Exam: See Below General Appearance: Alert, WD/WN, No Apparent Distress Respiratory/Chest: No Respiratory Distress, Lungs Clear, Normal Breath Sounds, No Accessory Muscle Use, Chest Non-Tender Cardiovascular: Normal Peripheral Pulses, Regular Rate, Rhythm, No Edema, No Gallop, No JVD, No Murmur, No Rub GI/Abdominal Exam: Normal Bowel Sounds, Soft, Non-Tender, No Organomegaly, No Distention, No Abnormal Bruit, No Mass, Pelvis Stable Rectal (Males) Exam: Deferred (Patient refused) Neurological: Alert, Oriented, CN II-XII Intact, Normal Cognition, Normal Gait, Normal Reflexes, No Motor/Sensory Deficits Psychiatric: Normal Affect, Normal Mood Skin Exam: Warm, Dry, Intact, Normal Color, No Rash Course - Vital Signs Last Recorded V/S: Last Vital Signs Temp 97.8 F 11/22/19 13:34 Pulse 90 11/22/19 13:34 Resp 16 11/22/19 13:34 BP 129/82 11/22/19 13:34 Pulse Ox 97 11/22/19 13:34 - Orders/Labs/Meds Labs: Laboratory Tests 11/22/19 11/22/19 Range/Units 12:26 12:26 WBC 7.44 (4.23-9.07) K/mm3 RBC 5.28 (4.63-6.08) M/mm3 Hgb 15.7 (13.7-17.5) gm/dl Hct 46.4 (40.1-51.0) % MCV 87.9 (79.0-92.2) fl MCH 29.7 (25.7-32.2) pg MCHC 33.8 (32.2-35.5) g/dl RDW Std Deviation 42.3 (35.1-43.9) fL Plt Count 454 H (163-337) K/mm3 MPV 7.9 L (9.4-12.3) fl Neut % (Auto) 64.3 (34.0-67.9) % Lymph % (Auto) 18.0 L (21.8-53.1) % [place] % (Auto) 9.5 (5.3-12.2) % Eos % (Auto) 7.8 H (0.8-7.0) Baso % (Auto) 0.3 (0.1-1.2) % Neut # (Auto) 4.78 (1.78-5.38) K/mm3 Lymph # (Auto) 1.34 (1.32-3.57) K/mm3 [place] # (Auto) 0.71 (0.30-0.82) K/mm3 Eos # (Auto) 0.58 H (0.04-0.54) K/mm3 Baso # (Auto) 0.02 (0.01-0.08) K/mm3 Sodium 136 (136-145) mEq/L Potassium 4.3 (3.5-5.1) mEq/L Chloride 101 (98-107) mEq/L Carbon Dioxide 27 (21-32) mEq/L Anion Gap 12.3 (5-15) BUN 12 (7-18) mg/dL Creatinine 1.2 (0.7-1.3) mg/dL Est Cr Clr Drug Dosing 77.24 mL/min Estimated GFR (MDRD) > 60 (>60) mL/min BUN/Creatinine Ratio 10.0 L (14-18) Glucose 117 H (74-106) mg/dL Calcium 9.3 (8.5-10.1) mg/dL Total Bilirubin 0.5 (0.2-1.0) mg/dL AST 20 (15-37) U/L ALT 47 (16-63) U/L Alkaline Phosphatase 63 (46-116) U/L Total Protein 7.4 (6.4-8.2) g/dl Albumin 3.8 (3.4-5.0) g/dl Globulin 3.6 gm/dL Albumin/Globulin Ratio 1.1 (1-2) - Re-Assessments/Exams Free Text/Narrative Re-Assessment/Exam: 11/22/19 12:58 Patient is a 54-year-old male presenting to the emergency department with complaints of blood in his stool this morning. He states he does have a history of hemorrhoids. States his stool was formed but not overly hard or large. Patient refused a rectal exam. He has not had a colonoscopy thus far. Since he is refusing rectal exam, we will complete blood work today including a CBC, CMP, CRP to ensure he is not anemic. If these are found to be normal, we will have him follow-up with Dr. White, general surgeon to discuss colonoscopy. 11/22/19 13:19 Hematology was grossly unremarkable. Hemoglobin 15.7. Discussed the possible causes of bright red bleeding per rectum Will have patient follow-up with Dr. White to discuss his rectal bleeding as well as make arrangements for a routine colonoscopy as he has not had one thus far. Discharge instructions as documented. Departure - Departure Time of Disposition: 13:20 Disposition: Home, Self-Care 01 Preliminary Cause of *Q: Cardiac Arrest Condition: Good Clinical Impression: Rectal bleeding - Discharge Information *PRESCRIPTION DRUG MONITORING PROGRAM REVIEWED*: No *COPY OF PRESCRIPTION DRUG MONITORING REPORT IN PATIENT JUDY: No Instructions: Rectal Bleeding Referrals: Burak White MD [Physician] - Forms: ED Department Discharge Additional Instructions: You were seen in the emergency department today for blood in your stool when he had a bowel movement this morning. While the cause of your rectal bleed is unknown, your blood work including your hemoglobin were checked and found to be normal. Recommend that you schedule a follow-up appointment with Dr. White, general surgeon to discuss your rectal bleeding as well as to schedule a routine colonoscopy as you verbalized that you have not had one. Return to the ER for any new or worsening symptoms of concern. Sepsis Event Note (ED) - Evaluation Sepsis Screening Result: No Definite Risk - Focused Exam Vital Signs: Vital Signs Temp Pulse Resp BP Pulse Ox 11/22/19 13:34 97.8 F 90 16 129/82 97 11/22/19 12:03 98.4 F 101 H 16 156/84 H 99
[2019-11-22 13:39] VITALS: BP 129/82; PULSE 90
== END 2019-11-22 13:34 | disposition home or self-care (01) ==
LOC: JD.ED 11:52
DX: K62.5 Hemorrhage of anus and rectum (principal); E78.00 Pure hypercholesterolemia, unspecified; Z91.011 Allergy to milk products; Z88.0 Allergy status to penicillin; Z79.899 Other long term (current) drug therapy
CPT/HCPCS: 36415; 80053; 85025; 99282; 99283

== ENCOUNTER 2020-01-05 14:30 | Emergency (ER) | payer OTHER ==
[2020-01-05 14:52] VITALS: BP 153/86; PULSE 115
[2020-01-05] MEDS ORDERED: FLU VACC QS2020-21(6MOS UP)/PF 60 MCG/0.5 ML SYRINGE IM ONE (15:00)
--- NOTE | 2020-01-05 15:02 | EDM.PDOC ---
ED HPI GENERAL MEDICAL PROBLEM - General Chief Complaint: Abdominal Pain Stated Complaint: LEFT SIDE FLANK PAIN Time Seen by Provider: 01/05/20 15:01 Source of Information: Reports: Patient History Limitations: Reports: No Limitations - History of Present Illness INITIAL COMMENTS - FREE TEXT/NARRATIVE: 54-year-old male presents to the ED with diffuse left upper quadrant abdominal pressure discomfort. He also has pressure in his left flank. He stone but he doesn't know where or how big it is. He has had multiple bouts of renal lithiasis over the years. He passed his last stone on his own about a month ago. He hasn't noticed any definitive blood in his urine. He feels a strong sense of urinary urgency but feels an incomplete feeling of emptying his bladder. Bowel function is normal. He has had no abdominal surgery. He is scheduled for urology consultation in 2 days time in [place] with planned trip see next Saturday if it is required. Came in today primarily to ascertain that the pressure that he is feeling in his left upper quadrant of his abdomen is related to the kidney stone. Denies fever chills nausea or vomiting. Onset: Gradual Onset Date: 01/02/20 Duration: Day(s):, Getting Worse Location: Reports: Abdomen (At upper quadrant of the abdomen associate with left flank discomfort.) Quality: Reports: Ache, Pressure, Other Severity: Moderate Improves with: Reports: None Worsens with: Reports: Other (Is made worse by sitting down) Context: Denies: Activity, Exercise, Lifting, Sick Contact, Trauma, Other Associated Symptoms: Denies: No Other Symptoms, Confusion, Chest Pain, Cough, cough w sputum, Diaphoresis, Fever/Chills, Headaches, Loss of Appetite, Malaise, Nausea/Vomiting, Seizure, Shortness of Breath, Syncope, Weakness, Other Treatments ETL ARCHITECT: Reports: NSAIDS ([place].) Left Upper Abdominal Pain Score (Numeric/FACES): 3 - Related Data Allergies Allergy/AdvReac Type Severity Reaction Status Date / Time milk Allergy Severe Nausea and Verified 01/05/20 14:52 Vomiting Penicillins Allergy Severe Rash Verified 01/05/20 14:52 Home Meds: Home Meds Simvastatin [Zocor] 20 mg PO DAILY 11/25/15 [History] Cefdinir [Omnicef] 300 mg PO BID #14 cap 01/05/20 [Rx] oxyCODONE HCl/Acetaminophen [Percocet 5-325 mg Tablet] 1 - 2 each PO Q4H PRN #18 tablet 01/05/20 [Rx] Past Medical History HEENT History: Reports: Other (See Below) Cardiovascular History: Reports: High Cholesterol Genitourinary History: Reports: Renal Calculus, Other (See Below) Other Genitourinary History: lithotripsy Endocrine/Metabolic History: Reports: Hyperthyroidism - Infectious Disease History Infectious Disease History: Reports: Measles - Past Surgical History HEENT Surgical History: Reports: Tonsillectomy Male Surgical History: Reports: Lithotripsy (ESWL) Social & Family History - Family History Family Medical History: No Pertinent Family History - Tobacco Use Tobacco Use Status *Q: Never Tobacco User - Caffeine Use Caffeine Use: Reports: Coffee - Recreational Drug Use Recreational Drug Use: No - Living Situation & Occupation Living situation: Reports: , with Spouse Occupation: Employed ED ROS GENERAL - Review of Systems Review Of Systems: See Below Constitutional: Reports: Malaise, Fatigue, Decreased Appetite. Denies: Fever, Chills, Weight Loss HEENT: Reports: No Symptoms Respiratory: Reports: No Symptoms Cardiovascular: Reports: No Symptoms Endocrine: Reports: Fatigue GI/Abdominal: Reports: Abdominal Pain (Diffuse pressure discomfort left upper quadrant of the abdomen like a football is), Decreased Appetite ( up underneath his left ribs. Associated pressure discomfort in the left flank.), Nausea. Denies: Difficulty Swallowing, Distension, Flatus, Hematemesis, Hematochezia, Melena, Mucous in Stool, Stool Incontinence, Vomiting, Other : Reports: Other (The nausea. Urinary urgency with a sense of incomplete emptying of the urinary bladder) Musculoskeletal: Reports: No Symptoms Skin: Reports: No Symptoms Neurological: Reports: No Symptoms Psychiatric: Reports: No Symptoms Hematologic/Lymphatic: Reports: No Symptoms Immunologic: Reports: No Symptoms ED EXAM, GI/ABD - Physical Exam Exam: See Below Exam Limited By: No Limitations General Appearance: Alert, WD/WN, No Apparent Distress, Other (Temperature is 36.4 heart rate 115 and sinus respiratory 18 with sats of 96% room air BP mildly elevated 1 5386) Eyes: Bilateral: Normal Appearance Throat/Mouth: Normal Inspection (No scleral icterus or blepharal pallor.), Normal Lips, Normal Oropharynx Head: Atraumatic, Normocephalic Neck: Normal Inspection, Supple, Non-Tender, Full Range of Motion, Carotid Bruit. No: Lymphadenopathy (L), Lymphadenopathy (R) Respiratory/Chest: No Respiratory Distress, Lungs Clear, Normal Breath Sounds, No Accessory Muscle Use, Chest Non-Tender Cardiovascular: Normal Peripheral Pulses, Regular Rate, Rhythm, No Edema, No Gallop, No Murmur, No Rub GI/Abdominal Exam: Soft (Sounds are decreased in all 4 quadrants.), Non-Tender, No Organomegaly, No Abnormal Bruit, No Mass, Pelvis Stable, Abnormal Bowel Sounds, Other (Not palpate any definitive mass in the left upper quadrant of the abdomen.). No: Guarding, Rigid, Rebound Back Exam: Normal Inspection, Full Range of Motion. No: CVA Tenderness (L), CVA Tenderness (R) Extremities: Normal Inspection, Normal Range of Motion, Non-Tender Neurological: Alert, CN II-XII Intact, Normal Cognition Psychiatric: Normal Affect, Normal Mood Skin Exam: Warm, Dry, Intact, Normal Color, No Rash Course - Vital Signs Last Recorded V/S: Last Vital Signs Temp 36.4 C 01/05/20 14:46 Pulse 115 H 01/05/20 14:46 Resp 18 01/05/20 14:46 BP 153/86 H 01/05/20 14:46 Pulse Ox 96 01/05/20 14:46 - Orders/Labs/Meds Orders: Active Orders 24 hr Category Date Time Status Influenza Vaccine Charge [RC] .DISCHARGE Care 01/05/20 14:55 Active Abdomen Pelvis wo Cont [CT] Stat Exams 01/05/20 15:02 Ordered URINALYSIS W/MICROSCOPIC [UA W/MICROSCOPIC] [URIN] Stat Lab 01/05/20 15:01 Ordered Meds: Medications Discontinued Medications Generic Name Dose Route Start Last Admin Trade Name Freq PRN Reason Stop Dose Admin Influenza Virus Vaccine 60 mcg 01/05/20 15:00 Fluzone Quad [id number] Syringe IM 01/05/20 15:01 .ONCE ONE - Radiology Interpretation Free Text/Narrative:: 54-year-old male who is known to have frequent problems with renal stones presents once again to the hospital for left upper quadrant abdominal pain pressure discomfort. He states is different than what he is experienced with kidney stones in the past. He also has left flank pain. He has a sense of incomplete emptying of the urinary bladder with a sense of urinary urgency or frequency. He has not appreciated any danyel blood in his urine. Symptoms started about 10 days ago and particularly noted the last 3 to 4 days left upper quadrant abdominal pressure discomfort made worse by sitting down. His appetite is somewhat depressed. No associated fever chills nausea vomiting. He is scheduled for urology appointment on Saturday this week he has not had any imaging of his abdomen to confirm he has a proximal kidney stone but he is highly suspicious of this. Examination does not reveal any obvious masses or abnormalities within the abdomen at this time. Bowel sounds are few and far between. At present he is not in any significant pain or discomfort. He'll have a urinalysis performed and a CT of the abdomen pelvis per renal protocol. - Re-Assessments/Exams Free Text/Narrative Re-Assessment/Exam: 01/05/20 15:49 CT of the abdomen and pelvis reveals scattered stool throughout the right hemicolon and transverse colon but no masses in the left upper quadrant of the abdomen. 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 It has been there for some time. No splenomegaly. Pancreas is normal 9 to 9.5 mm ovoid intrarenal calcification of the lower pole with partial obstruction of the lower pole infundibulum. Diverticulosis coli with diverticulitis. No evidence of appendicitis. Of note there are small subcentimeter paraesophageal lymph nodes at the gastroesophageal junction. The prostate gland demonstrates mild hyperplasia Bones show mild to moderate central spinal stenosis at L4-L5 level. Departure - Departure Time of Disposition: 15:42 Disposition: Home, Self-Care 01 Condition: Fair Clinical Impression: Kidney stone on left side - Discharge Information *PRESCRIPTION DRUG MONITORING PROGRAM REVIEWED*: Not Applicable *COPY OF PRESCRIPTION DRUG MONITORING REPORT IN PATIENT JUDY: Not Applicable Prescriptions: Cefdinir [Omnicef] 300 mg PO BID #14 cap oxyCODONE HCl/Acetaminophen [Percocet 5-325 mg Tablet] 1 - 2 each PO Q4H PRN #18 tablet PRN Reason: pain relief. Referrals: PCP,None [Primary Care Provider] - Forms: ED Department Discharge Additional Instructions: Evaluation in the emergency room today in regards to persistent pressure discomfort left upper quadrant of the abdomen CT scan of the abdomen reveals a nodule within your liver which has been present for many years and represents a granuloma which means nothing. There is a 9 to 9.5 mm stone in the upper left ureter just inferior to the kidney on the left side. This causes partial obstruction of the kidney. Suggest using antibiotic Omnicef 300 mg twice daily for the next week to prevent secondary infection. Percocet tabs 5/325 mg strength 1 or 2 every 4-6 hours needed for pain relief. Up with urology in 2 days time in [place] as planned. I did send your CT scan to [facility]. Sepsis Event Note (ED) - Evaluation Sepsis Screening Result: No Definite Risk - Focused Exam Vital Signs: Vital Signs Temp Pulse Resp BP Pulse Ox 01/05/20 14:46 36.4 C 115 H 18 153/86 H 96 - My Orders Last 24 Hours: My Active Orders 01/05/20 14:55 Influenza Vaccine Charge [RC] .DISCHARGE 01/05/20 15:01 URINALYSIS W/MICROSCOPIC [UA W/MICROSCOPIC] [URIN] Stat 01/05/20 15:02 Abdomen Pelvis wo Cont [CT] Stat - Assessment/Plan Last 24 Hours: My Active Orders 01/05/20 14:55 Influenza Vaccine Charge [RC] .DISCHARGE 01/05/20 15:01 URINALYSIS W/MICROSCOPIC [UA W/MICROSCOPIC] [URIN] Stat 01/05/20 15:02 Abdomen Pelvis wo Cont [CT] Stat
--- NOTE | 2020-01-06 08:38 | CT ---
"PROCEDURE INFORMATION: Exam: CT Abdomen And Pelvis Without Contrast Exam date and time: 01/05/2020 3:08 PM Age: 54 years old Clinical indication: Abdominal pain; Patient HX: Lt flank pain, HX kideny stones TECHNIQUE: Imaging protocol: Computed tomography of the abdomen and pelvis without contrast. Radiation optimization: All CT scans at this facility use at least one of these dose optimization techniques: automated exposure control; mA and/or kV adjustment per patient size (includes targeted exams where dose is matched to clinical indication); or iterative reconstruction. COMPARISON: CT Abdomen Pelvis wo Cont 02/16/2015 2:22 PM FINDINGS: Lungs: Mild bibasilar atelectasis. Liver: Solitary hepatic calcified granuloma. Liver otherwise unremarkable. Gallbladder and bile ducts: Normal. No calcified stones. No ductal dilation. Pancreas: Normal. No ductal dilation. Spleen: Normal. No splenomegaly. Adrenal glands: Normal. No mass. Kidneys and ureters: 9 mm ovoid intrarenal calcification in the lower pole may be obstructing a lower pole infundibulum. If clinically desired correlation with CT urography suggested. Stomach and bowel: Diverticulosis coli without diverticulitis. Appendix: No evidence of appendicitis. Intraperitoneal space: Unremarkable. No free air. No significant fluid collection. Vasculature: The aortoiliac vessels demonstrate mild atherosclerotic calcification. Lymph nodes: Small subcentimeter paraesophageal lymph nodes at the GE junction. Urinary bladder: Unremarkable as visualized. Reproductive: The prostate gland demonstrates mild hyperplasia. Bones/joints: [id number] central spinal stenosis L4-L5. JHONATHAN SCHNEIDERY | Final Radiology Report CONFIDENTIALITY STATEMENT This report is intended only for use by the referring physician, and only in accordance with law. If you received this in error, call [phone]. Page 2 of 2 Soft tissues: Small bilateral inguinal hernias without incarceration. IMPRESSION: 1. Mild prostatic hyperplasia. 2. 9 mm ovoid intrarenal calcification in the lower pole may be obstructing a lower pole infundibulum. If clinically desired correlation with CT urography suggested. 3. Diverticulosis coli without diverticulitis. Thank you for allowing us to participate in the care of your patient. Dictated and Authenticated by: Willian Landis MD 01/05/2020 4:30 PM Central Time ([place] & [place]) [facility]"
== END 2020-01-05 16:10 | disposition home or self-care (01) ==
LOC: JD.ED 14:30
DX: N20.0 Calculus of kidney (principal); E78.00 Pure hypercholesterolemia, unspecified; Z79.899 Other long term (current) drug therapy; Z91.011 Allergy to milk products; Z88.0 Allergy status to penicillin; Z23 Encounter for immunization
CPT/HCPCS: 74176; 74176-26; 81001; 90686; 99284; 99284-25; G0008

== ENCOUNTER 2020-05-09 15:09 | Emergency (ER) | payer MEDICAID, OTHER ==
--- NOTE | 2020-05-09 15:15 | EDM.PDOC ---
ED HPI GENERAL MEDICAL PROBLEM - General Chief Complaint: Eye Problems Stated Complaint: R EYE INJURY/REDNESS AND SWELLING Time Seen by Provider: 05/09/20 15:15 - History of Present Illness INITIAL COMMENTS - FREE TEXT/NARRATIVE: 55-year-old male presents the emergency room with a suspected foreign body in his right eye. Yesterday he was using a large spiral tube winder on a vehicle exhaust. After using this he went underneath it and thought he felt some fall into his right eye he tried irrigating working it out but did not really have much success he has some moderate discomfort associated with this. He has not complained of any decreased visual acuity. His last tetanus shot was roughly a year ago. Right Eye Pain Score (Numeric/FACES): 4 - Related Data Allergies Allergy/AdvReac Type Severity Reaction Status Date / Time milk Allergy Severe Nausea and Verified 05/09/20 15:16 Vomiting Penicillins Allergy Severe Rash Verified 05/09/20 15:16 Home Meds: Home Meds Simvastatin [Zocor] 20 mg PO DAILY 11/25/15 [History] Cefdinir [Omnicef] 300 mg PO BID #14 cap 01/05/20 [Rx] oxyCODONE HCl/Acetaminophen [Percocet 5-325 mg Tablet] 1 - 2 each PO Q4H PRN #18 tablet 01/05/20 [Rx] Past Medical History HEENT History: Reports: Other (See Below) Cardiovascular History: Reports: High Cholesterol Genitourinary History: Reports: Renal Calculus, Other (See Below) Other Genitourinary History: lithotripsy Endocrine/Metabolic History: Reports: Hyperthyroidism - Infectious Disease History Infectious Disease History: Reports: Measles - Past Surgical History HEENT Surgical History: Reports: Tonsillectomy Male Surgical History: Reports: Lithotripsy (ES[facility]) Social & Family History - Family History Family Medical History: No Pertinent Family History - Caffeine Use Caffeine Use: Reports: Coffee - Living Situation & Occupation Living situation: Reports: , with Spouse Occupation: Employed ED ROS GENERAL - Review of Systems Review Of Systems: See Below Constitutional: Reports: No Symptoms HEENT: Reports: Eye Pain. Denies: Ear Pain, Rhinitis, Throat Pain Respiratory: Reports: No Symptoms Cardiovascular: Reports: No Symptoms GI/Abdominal: Reports: No Symptoms ED EXAM GENERAL W FULL EYE - Physical Exam Exam: See Below Exam Limited By: No Limitations General Appearance: Alert, No Apparent Distress Eye Exam: Right Eye: Foreign Body, Left Eye: Normal Inspection Eyelids: Bilateral: Normal Appearance Conjunctiva & Sclera: Right: Foreign Body Cornea Exam: Right: Foreign Body, Examined with Flourescein Extraocular Movements: Bilateral: Intact Pupils: Normal Accommodation Anterior Chamber: Bilateral: Normal Appearance Respiratory/Chest: No Respiratory Distress, Lungs Clear, Normal Breath Sounds Cardiovascular: Regular Rate, Rhythm, No Edema, No Murmur Neurological: Alert, Oriented, Normal Cognition ED EYE w/ Add Procedure - Eye Procedure Eye FB Removal: Other (Patient had a ambar object just medial to the midline and slightly inferior) Antibiotic Oinment/Drps Admin: Right Eye (Erythromycin ointment) Course - Vital Signs Last Recorded V/S: Last Vital Signs Temp 37.1 C 05/09/20 15:17 Pulse 93 05/09/20 15:17 Resp 16 05/09/20 15:17 BP 156/88 H 05/09/20 15:17 Pulse Ox 100 05/09/20 15:17 - Orders/Labs/Meds Meds: Medications Discontinued Medications Generic Name Dose Route Start Last Admin Trade Name Tashi PRN Reason Stop Dose Admin Fluorescein Sodium 1 mg 05/09/20 15:16 05/09/20 15:33 Fluorescein 1 Mg Ophth Strip EYERT 05/09/20 15:17 1 mg ONETIME ONE Administration Proparacaine HCl 1 ml 05/09/20 15:16 05/09/20 15:33 Proparacaine 0.5% Ophth Soln 15 Ml Bottle EYERT 05/09/20 15:17 1 ml ONETIME STA Administration - Re-Assessments/Exams Free Text/Narrative Re-Assessment/Exam: 05/09/20 16:22 Foreign body removed using ice but followed by a bur all done under slit-lamp magnification. The eye was then examined with fluorescein no other injuries identified. Departure - Departure Time of Disposition: 16:25 Disposition: Home, Self-Care 01 Clinical Impression: Foreign body in cornea, right eye, initial encounter - Discharge Information Referrals: PCP,None [Primary Care Provider] - Forms: ED Department Discharge Additional Instructions: Return to the emergency room with any questions problems or worsening symptoms. Use the erythromycin ointment the received here in the emergency room about a third of an inch inside your lower eyelid every couple hours while awake. The function of this is to act as a lubricant with your eyes blink. Use your hydrocodone at home 1 or 2 every 4-6 hours as needed for pain. Follow-up with an eye doctor for recheck tomorrow afternoon or Saturday morning. Sepsis Event Note (ED) - Focused Exam Vital Signs: Vital Signs Temp Pulse Resp BP Pulse Ox 05/09/20 15:17 37.1 C 93 16 156/88 H 100
[2020-05-09] MEDS ORDERED: Proparacaine 0.5% Ophth Soln 15 ML Bottle EYERT STA (15:16)
[2020-05-09] MEDS ORDERED: Fluorescein 1 MG Ophth Strip EYERT ONE (15:16)
[2020-05-09 15:20] VITALS: BP 156/88; PULSE 93
[2020-05-09] MEDS ORDERED: Erythromycin Base 0.5% Ophth Oint 1 GM Tube EYERT ONE (16:23)
== END 2020-05-09 16:54 | disposition home or self-care (01) ==
LOC: JD.ED 15:09
DX: T15.01XA Foreign body in cornea, right eye, initial encounter (principal); E78.00 Pure hypercholesterolemia, unspecified; Z88.0 Allergy status to penicillin; Z91.011 Allergy to milk products; Z79.899 Other long term (current) drug therapy
CPT/HCPCS: 99283; A9270; 65222

== ENCOUNTER 2020-06-28 01:11 | Emergency (ER) | payer MEDICAID ==
[2020-06-28 01:26] VITALS: BP 122/100; PULSE 92
[2020-06-28] MEDS ORDERED: Lidocaine 1% with EPINEPHrine 1:100,000 10 ML MDV ONE (02:15)
--- NOTE | 2020-06-28 02:20 | EDM.PDOC ---
ED HPI GENERAL MEDICAL PROBLEM - General Chief Complaint: Skin Complaint Stated Complaint: RED SORES ON RIGHT BUTT CHEEK & MID BACK Time Seen by Provider: 06/28/20 01:45 - History of Present Illness INITIAL COMMENTS - FREE TEXT/NARRATIVE: Patient arrived to ED via private vehicle He is accompanied by his States he was seen by primary care provider on , 06/23/2020 for lesion on the right buttocks area This developed over approximately 2 days prior to that encounter States that provider squeezed a small amount of pus from the site, and prescribed treatment with cephalexin which he has been taking He was told not improving that he should come in for evaluation States increase in pain and redness and that skin over the center of the lesion has peeled off and looks burned Also concerned about a second lesion in middle of back Right Buttock Pain Score (Numeric/FACES): 6 - Related Data Allergies Allergy/AdvReac Type Severity Reaction Status Date / Time Penicillins Allergy Intermediate Rash Verified 06/28/20 01:21 milk AdvReac Intermediate Nausea and Verified 06/28/20 01:21 Vomiting Home Meds: Home Meds Simvastatin [Zocor] 20 mg PO DAILY 11/25/15 [History] Sulfamethoxazole/Trimethoprim [Septra DS] 1 each PO Q12H #15 tab 06/28/20 [Rx] cephALEXin [Cephalexin] 500 mg PO 06/28/20 [History] Past Medical History HEENT History: Reports: Other (See Below) Cardiovascular History: Reports: High Cholesterol Genitourinary History: Reports: Renal Calculus, Other (See Below) Other Genitourinary History: lithotripsy Endocrine/Metabolic History: Reports: Hyperthyroidism - Infectious Disease History Infectious Disease History: Reports: Measles - Past Surgical History HEENT Surgical History: Reports: Tonsillectomy Male Surgical History: Reports: Lithotripsy (ES[facility]) Social & Family History - Family History Family Medical History: No Pertinent Family History - Tobacco Use Tobacco Use Status *Q: Unknown Ever Used Tobacco - Caffeine Use Caffeine Use: Reports: Coffee - Living Situation & Occupation Living situation: Reports: , with Spouse Occupation: Employed ED ROS GENERAL - Review of Systems Review Of Systems: See Below Free Text/Narrative/Comment: Constitutional - no fever Cardiovascular - no chest pain Respiratory - no shortness of breath Gastrointestinal - no abdominal pain; no nausea; no vomiting Neurological - no weakness Skin - lesion ED EXAM, SKIN/RASH Exam: See Below Text/Narrative:: Constitutional - awake; alert; no acute distress Head - no facial swelling or weakness Eyes - extra ocular motion intact; conjunctiva normal ENT - no nasal deformity; no epistaxis; normal phonation Respiratory - normal respiratory effort Musculoskeletal - grossly normal strength and motion; no swelling or deformity Skin - - warm; dry - right posterolateral gluteal area: 2.5cm x 4cm area of induration and erythema, containing 1cm area superficial ulceration overlying 1.5cmm area of fluctuance Neurologic - normal speech; no weakness; gait intact Psychiatric - normal mood and affect; memory and attention normal ED SKIN PROCEDURES - I&D Site: right gluteal Skin Prep: Providone-Iodine (Betadine) Local Anesthesia: Lidocaine: 1% with EPI Local Anesthetic Volume: 3cc, Other Area Incised With: 11 Blade, Other (2 incisions; site aspirated via 18GA needle prior to incision) Drainage: Purulent, Bloody, Small Amount Probed to Break Up Loculations: Yes Packed With: Other (loop drain using butterfly needle tubing, knot reinforced with 3-0 prolene) Complications: No Course - Vital Signs Text/Narrative:: . Considered etiologies included: cellulitis, abscess Symptoms and examination were discussed Limited, bedside US evaluation by telegraphic typewriter installer showed 1cm hypoechoic lesion within 1cm skin depth underlying skin ulceration Patient was agreeable with I&D of abscess, which was performed as noted above In consideration of induration/cellulitis surrounding abscess, treatment with TMP/SMX was prescribed in place of cephalexin Priamry care follow-up, and loop drain removal, were discussed Patient was felt to be stable for outpatient follow-up Return precautions were provided Last Recorded V/S: Last Vital Signs Temp 36.8 C 06/28/20 01:22 Pulse 92 06/28/20 01:22 Resp 18 06/28/20 01:22 BP 122/100 H 06/28/20 01:22 Pulse Ox 99 06/28/20 01:22 - Orders/Labs/Meds Meds: Medications Discontinued Medications Generic Name Dose Route Start Last Admin Trade Name Freq PRN Reason Stop Dose Admin Lidocaine/Epinephrine Confirm 06/28/20 02:15 Lidocaine 1% With Epinephrine 1:100,000 10 Ml Mdv Administered 06/28/20 02:16 Dose 10 ml .ROUTE .STK-MED ONE Lidocaine/Epinephrine 10 ml 06/28/20 04:54 06/28/20 02:30 Lidocaine 1% With Epinephrine 1:100,000 10 Ml Mdv INJECT 06/28/20 04:55 10 ml ONETIME ONE Administration Trimethoprim/Sulfamethoxazole 1 tab 06/28/20 02:50 06/28/20 03:00 Sulfamethoxazole/Trimethoprim 800-160 Mg Tab PO 06/28/20 02:51 1 tab ONETIME ONE Administration Departure - Departure Time of Disposition: 02:54 Disposition: Home, Self-Care 01 Condition: Good Clinical Impression: Abscess of gluteal region - Discharge Information Prescriptions: Sulfamethoxazole/Trimethoprim [Septra DS] 1 each PO Q12H #15 tab Instructions: Skin Abscess Referrals: PCP,None [Primary Care Provider] - Forms: ED Department Discharge Additional Instructions: Return if condition worsens May resume general activity and regular diet as tolerated May discontinue CEPHALEXIN antibiotic if desired Take TRIMETHOPRIM/SULFAMETHOXAZOLE antibiotic as prescribed, until completed Perform sitz bath's for 10 minutes twice daily as able Change dressing daily, and further as needed May cut and remove loop drain when drainage has stopped or is no longer purulent, or after 3-4 days, whichever is longer Follow-up with primary care provider is recommended in 3 to 5 days Sepsis Event Note (ED) - Evaluation Sepsis Screening Result: No Definite Risk
[2020-06-28] MEDS ORDERED: Sulfamethoxazole/Trimethoprim 800-160 MG Tab PO ONE (02:50)
[2020-06-28] MEDS ORDERED: Lidocaine 1% with EPINEPHrine 1:100,000 10 ML MDV INJECT ONE (04:54)
== END 2020-06-28 03:04 | disposition home or self-care (01) ==
LOC: JD.ED 01:11
DX: L02.31 Cutaneous abscess of buttock (principal); Z88.0 Allergy status to penicillin; Z91.011 Allergy to milk products
CPT/HCPCS: 10060; 99282; A9270; 99283

== ENCOUNTER 2021-05-13 09:47 | Emergency (ER) | payer MEDICAID ==
[2021-05-13 10:04] VITALS: BP 142/91; PULSE 100
== END 2021-05-13 12:55 | disposition home or self-care (01) ==
LOC: JD.ED 09:47
DX: I95.1 Orthostatic hypotension (principal); Z88.0 Allergy status to penicillin; Z91.011 Allergy to milk products; Z79.899 Other long term (current) drug therapy; Z72.0 Tobacco use
CPT/HCPCS: 36415; 80053; 84484; 85007; 85027; 93005; 93010; 99284; 99284-25

== ENCOUNTER 2021-06-02 10:56 | Emergency (ER) | payer MEDICAID ==
[2021-06-02 11:06] VITALS: BP 162/85; PULSE 99
[2021-06-02] MEDS ORDERED: Sodium Chloride 0.9% 10 ML Syringe FLUSH PRN (11:06)
[2021-06-02] MEDS ORDERED: Aspirin 81 MG Tab.Chew PO ONE (11:06)
[2021-06-02] MEDS ORDERED: Sodium Chloride 0.9% 1,000 ML IV ONE (11:16)
== END 2021-06-02 12:33 | disposition home or self-care (01) ==
LOC: JD.ED 10:56
DX: R00.0 Tachycardia, unspecified (principal); E05.90 Thyrotoxicosis, unspecified without thyrotoxic crisis or storm; E78.00 Pure hypercholesterolemia, unspecified; Z88.0 Allergy status to penicillin; Z91.011 Allergy to milk products; Z79.899 Other long term (current) drug therapy; Z72.0 Tobacco use
CPT/HCPCS: 36415; 71045; 80053; 83735; 84436; 84484; 85025; 85379; 85610; 93005; 99285; A9270; J3490; J7030; 93010; 99284